=== PATIENT | female | born 1985 | race American Indian/Alaskan Native ===

== ENCOUNTER 2019-09-23 09:48 | Emergency (ER) | payer MEDICAID, OTHER ==
[2019-09-23 09:57] VITALS: BP 145/97
[2019-09-23] MEDS ORDERED: predniSONE 50 MG TAB PO STA (10:36)
[2019-09-23] MEDS ORDERED: IPRATROPIUM/ALBUTEROL SULFATE 3 ML AMPUL.NEB IH ONE (10:36)
[2019-09-23] MEDS ORDERED: ACETAMINOPEN W/CODEINE 120-12MG ORAL LIQD 5 ML PO STA (10:37)
--- NOTE | 2019-09-23 10:39 | Emergency Department Report ---
- General Chief Complaint: Upper Respiratory Infection Stated Complaint: LYNDSEY/LOWER BACK PAIN/COUGH Time Seen by Provider: 09/23/19 10:36 Source: patient Mode of arrival: Ambulatory Limitations: No Limitations - History of Present Illness Initial Comments: 33-year-old [place] female with a much department complaining of cough congestion chest pain shortness of breath with lower back pain as well. Reports no fevers or chills but does have some muscle aches and coryza. No hemoptysis no hematemesis or hematochezia. She reports no lower extremity trauma. No loss of bowel or bladder no saddle paresthesia. MD Complaint: cough, rhinorrhea, nasal congestion Consistency: constant Improves With: nothing Worsens With: nothing Associated Symptoms: myalgias, rhinorrhea, nasal congestion, cough, shortness of breath. denies: diarrhea, right sweats, weight loss, epistaxis, hoarseness - Related Data Home Medications Medication Instructions Recorded Confirmed Last Taken Vit No.130/Iron/Folic 1 each PO QDAY 09/13/16 09/13/16 Unknown [ Tablet] Previous Rx's Medication Instructions Recorded Last Taken Type ALBUTEROL Inhaler (OR & NICU) 1 puff IH Q4-6H PRN #1 inha 09/23/19 Unknown Rx [ProAir HFA Inhaler] Azithromycin [Zithromax TAB] 500 mg PO QDAY #3 tablet 09/23/19 Unknown Rx guaiFENesin/CODEINE [Robitussin AC] 5 ml PO Q6H PRN #120 ml 09/23/19 Unknown Rx predniSONE [Deltasone] 50 mg PO QDAY #5 tab 09/23/19 Unknown Rx Allergies Allergy/AdvReac Type Severity Reaction Status Date / Time Penicillins Allergy Angioedema Verified 09/23/19 09:51 shellfish derived Allergy Angioedema Verified 09/23/19 09:51 ED Review of Systems ROS: Stated complaint: LYNDSEY/LOWER BACK PAIN/COUGH Other details as noted in HPI Comment: All other systems reviewed and negative ED Past Medical Hx - Past Medical History Hx Hypertension: No Hx Congestive Heart Failure: No Hx Diabetes: No Hx Deep Vein Thrombosis: No Hx Renal Disease: No Hx Sickle Cell Disease: No Hx Seizures: No Hx Asthma: Yes Hx COPD: No Hx HIV: No - Surgical History Past Surgical History?: No - Social History Smoking Status: Never Smoker Substance Use Type: None - Medications Home Medications: Home Medications Medication Instructions Recorded Confirmed Last Taken Type Vit No.130/Iron/Folic 1 each PO QDAY 09/13/16 09/13/16 Unknown History [ Tablet] ALBUTEROL Inhaler (OR & NICU) 1 puff IH Q4-6H PRN #1 inha 09/23/19 Unknown Rx [ProAir HFA Inhaler] Azithromycin [Zithromax TAB] 500 mg PO QDAY #3 tablet 09/23/19 Unknown Rx guaiFENesin/CODEINE [Robitussin AC] 5 ml PO Q6H PRN #120 ml 09/23/19 Unknown Rx predniSONE [Deltasone] 50 mg PO QDAY #5 tab 09/23/19 Unknown Rx ED Physical Exam - General Limitations: No Limitations General appearance: alert, in no apparent distress - Head Head exam: Present: atraumatic, normocephalic - Eye Eye exam: Present: normal appearance, PERRL, EOMI Pupils: Present: normal accommodation - ENT ENT exam: Present: normal exam, normal orophraynx, mucous membranes moist - Neck Neck exam: Present: normal inspection - Respiratory Respiratory exam: Present: normal lung sounds bilaterally, wheezes, rhonchi. Absent: respiratory distress - Cardiovascular Cardiovascular Exam: Present: regular rate, normal rhythm. Absent: systolic murmur, diastolic murmur, rubs, gallop - GI/Abdominal GI/Abdominal exam: Present: soft, normal bowel sounds - Extremities Exam Extremities exam: Present: normal inspection - Back Exam Back exam: Present: normal inspection, full ROM, tenderness, paraspinal tenderness. Absent: CVA tenderness (R), CVA tenderness (L), rash noted - Neurological Exam Neurological exam: Present: alert, oriented X3, CN II-XII intact - Psychiatric Psychiatric exam: Present: normal affect, normal mood - Skin Skin exam: Present: warm, dry, intact, normal color. Absent: rash ED Course Vital Signs 09/23/19 09:55 Temperature 99.0 F Pulse Rate 117 H Respiratory 18 Rate Blood Pressure 145/97 O2 Sat by Pulse 94 Oximetry ED Medical Decision Making - Radiology Data Radiology results: report reviewed [facility] [address] [place] [address] XRay Report Signed Patient: SABRINA BLANCO MR# : [id number] : 1985 Acct:[id number] Age/Sex: 33 / F ADM Date: 09/23/19 Loc: ED Attending Dr: Ordering Physician: MAYNOR HACKETT Date of Service: 09/23/19 Procedure(s): XR chest routine 2V Accession Number(s): [id number] cc: MAYNOR HACKETT Fluoro Time In Minutes: CHEST 2 VIEWS INDICATION: cough and chest pain. COMPARISON: FINDINGS: Support devices: None. Heart: Within normal limits. Lungs: Diffuse airway thickening. No acute air space or interstitial disease. Pleura: No significant pleural effusion. No pneumothorax. Additional findings: None. IMPRESSION: 1. Airway disease Signer Name: Jose Luis Lundy MD Signed: 09/23/2019 10:55 AM Workstation Name: [id number] Transcribed By: WG Dictated By: Jose Luis Lundy MD Electronically Authenticated By: Jose Luis Lundy MD Signed Date/Time: 09/23/19 1055 DD/ 1054 TD/TT: - Medical Decision Making This patient presents with acute cough, most consistent with bronchitis or asthma. Differential diagnosis includes Cassie, asthma, bronchitis, interstitial lung disease, hyperreactive airway disease, malignancy. Presentation not consistent with acute bacterial pneumonia, influenza, asthma, transient airway hyperresponsiveness. Presentation not consistent with chronic causes of cough (including GERD, asthma, postnasal discharge, medication side effect, CHF, lung cancer or mass). Ms. Blanco also presents with back pain most consistent with musculoskeletal or igin. Differential diagnoses includes lumbago versus musculoskeletal spasm / strain versus sciatica. No back pain red flags on history or physical. Presentation not consistent with malignancy (lack of history of malignancy, lack of B symptoms), fracture (no trauma, no bony tenderness to palpation), cauda equina (no bowel or urinary incontinence/retention, no saddle anesthesia, no distal weakness), AAA, viscus perforation , pulmonary embolism, renal colic, pyelonephritis (afebrile, no CVAT, no urinary symptoms). Given the clinical picture, no indication for imaging at this time. Plan back pain: pain control, supportive care, reassess Plan cough and shortness of breath: CXR, supportive care, reassess Critical care attestation.: If time is entered above; I have spent that time in minutes in the direct care of this critically ill patient, excluding procedure time. ED Disposition Clinical Impression: Cough, Lumbago, Reactive airway disease Disposition: TO HOME OR SELFCARE Is pt being admited?: No Does the pt Need Aspirin: No Condition: Stable Instructions: Reactive Airways Disease (ED), Lumbar Radiculopathy (ED), Back Pain (ED) Prescriptions: predniSONE [Deltasone] 50 mg PO QDAY #5 tab ALBUTEROL Inhaler (OR & NICU) [ProAir HFA Inhaler] 1 puff IH Q4-6H PRN #1 inha PRN Reason: Cough guaiFENesin/CODEINE [Robitussin AC] 5 ml PO Q6H PRN #120 ml PRN Reason: Cough Azithromycin [Zithromax TAB] 500 mg PO QDAY #3 tablet Referrals: TIFFANIE BECK MD [Staff Physician] - 3-5 Days
--- NOTE | 2019-09-23 10:59 | XRay Report ---
CHEST 2 VIEWS INDICATION: cough and chest pain. COMPARISON: FINDINGS: Support devices: None. Heart: Within normal limits. Lungs: Diffuse airway thickening. No acute air space or interstitial disease. Pleura: No significant pleural effusion. No pneumothorax. Additional findings: None. IMPRESSION: 1. Airway disease Signer Name: Jose Luis Lundy MD Signed: 09/23/2019 10:55 AM Workstation Name: [id number]
== END 2019-09-23 12:10 | disposition home or self-care (01) ==
LOC: ED 09:48
DX: M54.5 Low back pain (principal); J45.909 Unspecified asthma, uncomplicated; Z79.899 Other long term (current) drug therapy; Z88.0 Allergy status to penicillin; Z91.013 Allergy to seafood
CPT/HCPCS: 71046; 94640; 99283; J7512

== ENCOUNTER 2021-08-05 16:57 | Emergency (ER) | payer BC, OTHER ==
[2021-08-05 17:30] VITALS: BP 158/80
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
== END 2021-08-05 18:17 | disposition home or self-care (01) ==
LOC: ED 16:57
DX: M54.2 Cervicalgia (principal); M54.6 Pain in thoracic spine; J45.909 Unspecified asthma, uncomplicated; Z79.899 Other long term (current) drug therapy; V87.7XXA Person injured in collision between other specified motor vehicles (traffic), initial encounter; Y93.89 Activity, other specified; Y92.488 Other paved roadways as the place of occurrence of the external cause; Y99.8 Other external cause status
CPT/HCPCS: 99281